=== PATIENT | male | born 1960 | race Caucasian/White ===

== ENCOUNTER 2025-06-21 07:52 | Day surgery (SDC) | payer MEDICARE, MEDICAID, SELFPAY ==
--- NOTE | 2025-06-08 11:48 | PAT.ANE_ITS ---
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 When Was Last Pacemaker Check QUESTION #4 FULL TEXT: You/Your Family Experience fever (hyperthermia) with Anesthesia Last Oral Intake Last Oral intake: Last Oral Intake NPO since Meds taken in AM with sips of water? Meds patient instructed to take am of surgery PONV PONV - production technologist: PONV - production technologist Female No 06/08/25 10:17 HX of Motion Sickness No 06/08/25 10:17 HX of N/V After Surgery No 06/08/25 10:17 Non-Smoker Yes 06/08/25 10:17 Duration of Surgery greater Yes 06/08/25 10:17 than 60 minutes Number of Risk Factors 2 06/08/25 10:17 PONV Score Moderate Risk 06/08/25 10:17 Height & Weight Height & Weight: Anesthesia: Height & Weight Height 6 ft 06/02/25 09:24 Respiratory Assessment Respiratory Assessment - production technologist: Respiratory Tract Infection Hx - production technologist Hx Respiratory Tract Infection No 06/08/25 10:17 STOP Sleep Apnea STOP Sleep Apnea - production technologist: STOP Sleep Apnea - production technologist Hx Hypertension Yes: CONTROLLED WITH MED 06/08/25 10:17 Hx Sleep Apnea No 06/08/25 10:17 CPAP BIPAP Do you snore loudly (louder No 06/08/25 10:17 than talking or can be heard Do you often feel tired/ Yes 06/08/25 10:17 fatigued/ sleepy during daytime? Has anyone observed you stop No 06/08/25 10:17 breathing during sleep? STOP Results Positive 06/08/25 10:17 QUESTION #5 FULL TEXT : Do you snore loudly (louder than talking or can be heard through closed doors)? 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 Specify any problems Hx of Preganancy in last 3 N/A 06/08/25 10:17 Months Nurse Filling Out Transfusion DSCHRIBER 06/08/25 10:17 & Questions: Date: 06/08/25 06/08/25 10:17 Time: 10:20 06/08/25 10:17 Patient unable to answer at this time (ie. confused, unrespo /Reproduction History /Reproductive History - production technologist: /Reproductive Hx- production technologist Hx Now No 06/08/25 10:17 Gestational Age (in weeks): EDC: Hx Hx Para Hx Section SAB No 06/08/25 10:17 [facility] Medical History (Updated 06/08/25 @ 10:40 by Allison Sequeira) Lives in apartment Acquired cognitive dysfunction Arthritis Bladder disease Prostate disease High cholesterol Back pain Head deformity Syncope Seizures History of diverticulitis Non-smoker Leg cramps Hypertension History of echocardiogram Cardiology follow-up encounter Fall Atrial fibrillation, new onset Thyroid disease Home Medications ?Medication ?Instructions ?Recorded ?Last Taken ?Type chlorhexidine gluconate 0.12 % 15 ml buccal QDAY 06/02 Unknown History mouthwash clotrimazole-betamethasone 1 1 applic topical BID 05/16 05/09 Unknown History %-0.05 % topical cream divalproex 500 mg tablet,delayed 500 mg PO .qd 5 Unknown History release (Depakote) donepezil 10 mg tablet 10 mg PO QDAY 06/02/25 Unkno wn History hydrochlorothiazide 12.5 mg capsule 12.5 mg PO QAM Unknown History levothyroxine 25 mcg capsule 25 mcg PO QDAY 06/02/25 U nknown History levothyroxine 25 mcg capsule 50 mcg PO QDAY 06/02/25 U nknown History mupirocin 2 % ointment topical kit 1 applic topical QD AY 06/02/25 Unknown History rosuvastatin 5 mg tablet 5 mg PO QDAY 06/02/25 Unknow n History sotalol 80 mg tablet 80 mg PO BID 06/02/25 Unknow n History tamsulosin 0.4 mg capsule 0.4 mg PO QDAY 06/02/25 Unkn own History Allergy/AdvReac Type Severity Reaction Status Date / Time No Known Allergies Allergy Verified 06/08/25 10:13 Family History (Updated 06/02/25 @ 09:24 by Peblbes Macdonald) Mother Diabetes Hypertension CVA (cerebral vascular accident) Thyroid disorder Sister Thyroid disorder Surgical History (Updated 06/08/25 @ 10:35 by Allison Sequeira) History of loop recorder H/O colectomy Social History (Updated 06/02/25 @ 09:24 by Pebbles Macdonald) Smoking Status: Never smoker alcohol intake: never Audit: Pertinent Findings Pertinent Findings Echo (EF%) pertinent findings: EF 55 to 60%. Wall motion is normal. There are no regional wall motion abnormalities. Normal diastolic function. The RV systolic pressure by Doppler is 33 mmHg. Consult pertinent findings: Cardiology note 05/09/2025. 65-year-old male for follow-up last seen on 04/04/2025 when he was started on sotalol and discontinued metoprolol. Patient has MRDD and his sister is his power of disability attorney. Recent echocardiogram showed normal ejection fraction and overall stable valve function. Recommendation Anesthesia Recommendation Anesthesia recommendation: OPTIMIZED for anesthesia
[2025-06-21] VITALS (9 sets, daily range): BP systolic 134–157; BP diastolic 80–95; PULSE 53–71; RESP 14–20; TEMP 36.2–36.5; O2SAT 84–98; BMI 27.8
--- NOTE | 2025-06-21 08:17 | PRE.ANES_ITS ---
ASA Classification* ASA Classification ASA Classification: 3 Assessment & Plan Anesthesia* Anesthesia Assessment Anesthesia Assessment: Discussed sedation and/or anesthesia options, risks, benefits, and alternatives with patient/parents/legal guardian/POA. Questions invited. The patient/parents/legal guardian/POA seems to understand and agrees to proceed with anesthesia plan. Reviewed the physical assessment, medical history, allergy history and patient home medications list prior to surgery/procedure/anesthetic and documented any changes. Performed airway and anesthesia risk assessments. 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 When Was Last Pacemaker Check QUESTION #4 FULL TEXT: You/Your Family Experience fever (hyperthermia) with Anesthesia Last Oral Intake Last Oral intake: Last Oral Intake NPO since Meds taken in AM with sips of water? 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 Female No 06/08/25 10:17 HX of Motion Sickness No 06/08/25 10:17 HX of N/V After Surgery No 06/08/25 10:17 Non-Smoker Yes 06/08/25 10:17 Duration of Surgery greater Yes 06/08/25 10:17 than 60 minutes Number of Risk Factors 2 06/08/25 10:17 PONV Score Moderate Risk 06/08/25 10:17 Height & Weight Height & Weight: Anesthesia: Height & Weight Height 6 ft 06/02/25 09:24 Respiratory Assessment Respiratory Assessment - embossing machine operator: Respiratory Tract Infection Hx - embossing machine operator Hx Respiratory Tract Infection No 06/08/25 10:17 STOP Sleep Apnea STOP Sleep Apnea - embossing machine operator: STOP Sleep Apnea - embossing machine operator Hx Hypertension Yes: CONTROLLED WITH MED 06/08/25 10:17 Hx Sleep Apnea No 06/08/25 10:17 CPAP BIPAP Do you snore loudly (louder No 06/08/25 10:17 than talking or can be heard Do you often feel tired/ Yes 06/08/25 10:17 fatigued/ sleepy during daytime? Has anyone observed you stop No 06/08/25 10:17 breathing during sleep? STOP Results Positive 06/08/25 10:17 QUESTION #5 FULL TEXT : Do you snore loudly (louder than talking or can be heard through closed doors)? 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 Specify any problems Hx of Preganancy in last 3 N/A 06/08/25 10:17 Months Nurse Filling Out Transfusion DSCHRIBER 06/08/25 10:17 & Questions: Date: 06/08/25 06/08/25 10:17 Time: 10:20 06/08/25 10:17 Patient unable to answer at this time (ie. confused, unrespo /Reproduction History /Reproductive History - embossing machine operator: /Reproductive Hx- embossing machine operator Hx Now No 06/08/25 10:17 Gestational Age (in weeks): EDC: Hx Hx Para Hx Section SAB No 06/08/25 10:17 Active Medications Active Medications: Current Medications Generic Name Dose Route Start Last Admin Trade Name Freq PRN Reason Stop Dose Admin Cefazolin Sodium 2 gm/ Sodium 110 mls @ 200 mls/hr 06/21/25 09:15 06/21/25 08:07 Chloride IV 06/21/25 09:47 Not Given INTRAOP ONE Lactated Ringer's 1,000 mls @ 15 mls/hr 06/21/25 08:15 IV .Q48H BLANKA PFSH Medical History Lives in apartment Acquired cognitive dysfunction Arthritis Bladder disease Prostate disease High cholesterol Back pain Head deformity Syncope Seizures History of diverticulitis Non-smoker Leg cramps Hypertension History of echocardiogram Cardiology follow-up encounter Fall Atrial fibrillation, new onset Thyroid disease Home Medications ?Medication ?Instructions ?Recorded ?Last Taken ?Type chlorhexidine gluconate 0.12 % 15 ml buccal BID Unknown History mouthwash clotrimazole-betamethasone 1 1 applic topical BID 05/16 05/09 Unknown History %-0.05 % topical cream divalproex 500 mg tablet,delayed 500 mg PO QHS 5 Unknown History release (Depakote) donepezil 10 mg tablet 10 mg PO QHS 06/02/25 Unknow n History hydrochlorothiazide 12.5 mg capsule 12.5 mg PO QAM Unknown History levothyroxine 25 mcg capsule 25 mcg PO SUMOTUTHFR 05/16 05/09 Unknown History levothyroxine 25 mcg capsule 50 mcg PO WESA 06/02/25 U nknown History rosuvastatin 5 mg tablet 5 mg PO QHS 06/02/25 Unknown History sotalol 80 mg tablet 80 mg PO BID 06/02/25 Unknow n History tamsulosin 0.4 mg capsule 0.4 mg PO QHS 06/02/25 Unkno wn History apixaban 5 mg tablet (Eliquis) 5 mg PO BID 06/08/25 Un known History Allergy/AdvReac Type Severity Reaction Status Date / Time No Known Allergies Allergy Verified 06/08/25 10:13 Family History Mother Diabetes Hypertension CVA (cerebral vascular accident) Thyroid disorder Sister Thyroid disorder Surgical History History of loop recorder H/O colectomy Social History Smoking Status: Never smoker alcohol intake: never Review of Systems (Anesthesia) ROS Narrative System reviewed and no additional complaints, except as documented.
--- NOTE | 2025-06-21 08:20 | PCM.HP.BLA ---
History and Physical Date of Admission: 06/21/25 Intake Visit Reasons: inguinal hernia Accompanied by: Legal Guardian Is patient in pain?: No Allergies No Known Allergies Allergy (Verified 06/02/25 09:30) Medications ?Medication ?Instructions ?Recorded ?Confirmed ?Type chlorhexidine gluconate 0.12 % 15 ml buccal QDAY 06/02/25 06/02/25 History mouthwash clotrimazole-betamethasone 1 1 applic topical BID 06/02/25 06/02/25 History %-0.05 % topical cream divalproex 500 mg tablet,delayed 500 mg PO .qd 06/02/25 06/02/25 History release (Depakote) donepezil 10 mg tablet 10 mg PO QDAY 06/02/25 06/02/25 History hydrochlorothiazide 12.5 mg capsule 12.5 mg PO QAM 06/02/25 06/02/25 History levothyroxine 25 mcg capsule 25 mcg PO QDAY 06/02/25 06/02/25 History levothyroxine 25 mcg capsule 50 mcg PO QDAY 06/02/25 06/02/25 History mupirocin 2 % ointment topical kit 1 applic topical QDAY 06/02/25 06/02/25 History rosuvastatin 5 mg tablet 5 mg PO QDAY 06/02/25 06/02/25 History sotalol 80 mg tablet 80 mg PO BID 06/02/25 06/02/25 History tamsulosin 0.4 mg capsule 0.4 mg PO QDAY 06/02/25 06/02/25 History Assessment and Plan Assessment and Plan (1) Inguinal hernia: Status: Acute Qualifiers: Obstruction and gangrene presence: without obstruction or gangrene Laterality: unilateral Recurrence: non-recurrent Qualified Code(s): K40.90 - Unilateral inguinal hernia, without obstruction or gangrene, not specified as recurrent 06/02/25940 <Electronically signed by Ladarius Rivera MD> Date Ladarius Rivera MD cc: ~* Signed Intake Vital Signs 06/02/2509:24 Height 6 ft Weight: 207 lb BMI 28.0 BP 106/69 Blood Pressure Location Rt brachial Position Sitting Respiration 17 Pulse 76 Pulse Source Monitor Pulse Oximetry (%) 96 Oxygen Delivery Method room air Intake Visit Reasons: INGUINAL HERNIA [facility] Medical History (Updated 06/02/25 @ 09:[address] Ladarius Rivera MD) Atrial fibrillation, new onset Thyroid disease Surgical History (Updated 06/02/25 @ 09:23 by Pebbles Macdonald) H/O colectomy Family History (Updated 06/02/25 @ 09:24 by Pebbles Macdonald) Mother Diabetes Hypertension CVA (cerebral vascular accident) Thyroid disorder Sister Thyroid disorder Social History (Updated 06/02/25 @ 09:24 by Pebbles Macdonald) Smoking Status: Never smoker alcohol intake: never HPI HPI HPI: Patient is a 65-year-old male here with right inguinal hernia. Patient's family notes that has been there for several weeks. He does not know how long it has been there. He denies acute pain in the area but he has complained of pain in the past. He denies nausea or vomiting. ROS General General: Yes fatigue; No weight change, appetite, colon cancer, breast cancer or weakness HEENT HEENT: No difficulty swallowing, eye injury, eye surgery, swollen glands or hoarseness Endo Endocrine: Yes thyroid disease; No diabetes mellitus, thyroid cancer, Hair loss, heat intolerance or cold intolerance Skin Skin: No rash or changing moles Musc Musculoskeletal: No back problems, arthritis, rheumatoid arthritis, gout or joint pain Cardio Cardiovascular: Yes atrial fibrillation; No murmur, pacemaker, heart disease, high blood pressure, heart attack, heart stent, palpitations, shortness of breath with exertion or chest pain Psych Psychiatric: No depression, anxiety or hearing voices Resp Respiratory: No shortness of breath, No sleep apnea, No cough, No COPD, No asthma, No emphysema and No wheezing Gastro Gastrointestinal: No abdominal pain, No nausea or vomiting, Yes diarrhea, Yes constipation, No blood in stool, No acid reflux, No hemorrhoids, No ulcers, No gallbladder problem and No black,tarry stools Isidro Hematologic: No blood thinners, No blood disorders, No bleeding, No anemia and No blood clots Neuro Neurologic: No system reviewed and no additional complaints, except as documented, No as per HPI, No abnormal gait, No abnormal hearing, No abnormal movements, No abnormal speech, No behavioral changes, No burning sensations, No confusion, No convulsions, No disequilibrium, No dizziness, No localized weakness, No frequent falls, No headache(s), No lack of coordination, No loss of vision, No memory loss, No numbness, No other visual disturbances, No radicular pain, No restless legs, No sensory deficit, No syncope, No tingling, No tremor(s), No weakness and No other Exam Const General: cooperative Orientation: alert and oriented x3 HENMT Head: normal to inspection Neck Neck: normal visual inspection and full ROM Chest Chest palpation & inspection: normal inspection of the chest Resp Effort & Inspection: normal respiratory effort Auscultation: clear to auscultation bilaterally Cardio Rate: regular rate Rhythm: regular rhythm GI Inspection: non-distended Palpation: soft, hernia indirect inguinal on the right and nontender Skin General: no rashes or lesions noted Neuro General: patient alert and patient oriented x3 Extrem General: full ROM Psych Appearance: grossly normal Mental Status: mental status grossly normal Assessment and Plan Assessment and Plan (1) Inguinal hernia: Status: Acute Qualifiers: Obstruction and gangrene presence: without obstruction or gangrene Laterality: unilateral Recurrence: non-recurrent Qualified Code(s): K40.90 - Unilateral inguinal hernia, without obstruction or gangrene, not specified as recurrent Plan: The patient has a reducible right inguinal hernia. I discussed repairing this in an open fashion as he has had a midline incision in the past and I think there would be too much scar tissue for robotic repair. I discussed open repair with the patient and his family in detail. I discussed the risks including but not limited to bleeding, infection, injury other organ such as the blood supply to the testicle or the testicle itself, bowel, bladder, chronic groin pain. Patient understands the risks and is willing to proceed. Ladarius Rivera MD Pager: [facility] [address] [place] [address], [address] [place] [address] Office: I have examined the patient and the H&P has been reviewed. There are no clinical changes since date of exam.
[2025-06-21 08:35] LABS: Hematocrit 42.4 % (40-54); Hemoglobin 14.2 g/dL (13.0-16.5); Mean Corp Hgb Conc 33.5 g/dL (32-36); Mean Corpuscular Volume 88.9 fL (80-94); Mean Platelet Vol. 9.9 fl (6.2-12.0); Platelet Count 168 K/mm3 (150-450); RBC Distribution Width CV 12.9 % (11.6-14.6); RBC Distribution Width SD 42.1 fl (35.1-43.9); Red Blood Count 4.77 M/mm3 (4.6-6.2); White Blood Count 5.0 K/mm3 (4.4-11.0)
[2025-06-21] MEDS: Lactated Ringers 1,000 ML 15 ML IV (09:00)
[2025-06-21] MEDS: Lactated Ringers 1,000 ML 1000 ML IV (09:05)
[2025-06-21] MEDS: Cefazolin 1 GM/5 ML Vial 2 GM IV (09:05)
[2025-06-21] MEDS: Midazolam 2 MG/2 ML Syringe IV (09:05)
[2025-06-21] MEDS: Lidocaine 1% (5 ml sdv) 5 ML Vial 10 ML IV (09:10)
--- NOTE | 2025-06-21 09:15 | HERN_PTH ---
PATIENT: REBECCA FORTE [place] [facility] [id number] AGE/SX: 65/M ROOM: RE06/21/[address]: Dr. Ladarius Rivera MD : 1960 BED: DIS: 06/21/2025 SPEC #: [id number] RECD: 06/21/25 11:49 STATUS: KELLI SOLIS #: [id number] KEZIA: 06/21/25 09:[address]: Ladarius Rivera DEPT: SURGICAL PATHOLOGY RECD BY: Amadou Cruz ENTERED: 06/21/25 13:41 SP TYPE: Hernia OTHR DR: Out of Town Doctor Tissues: A - HERNIA Procedures: Surgery Specimen Level II HEADER OPERATION: Hernia, open right inguinal hernia with mesh PRE-OP DIAGNOSIS: Inguinal hernia TISSUE SUBMITTED: A- Right inguinal hernia sac MICROSCOPIC DIAGNOSIS A. Soft tissue, right inguinal hernia repair: * Benign fibromembranous tissue consistent with hernia sac MICROSCOPIC DESCRIPTION Slides are reviewed. GROSS DESCRIPTION A. Received in formalin labeled with the patient's name and date of . Designated as right inguinal hernia sac is a 7.6 x 4.6 x 1.4 cm pink-red, slightly wrinkled and glistening portion of semimembranous tissue with attached yellow soft tissue and focal cautery. Metal Inspector sections are submitted in 1 cassette. IA 06/21/2025 CPT:73830
[2025-06-21 09:25] LABS: Anion Gap 12 (5-15); BUN 37 mg/dL (4-19); BUN/Creat Ratio 33.3 RATIO (10-20); Calcium,Total 9.1 mg/dL (7.6-11.0); Carbon Dioxide 23.6 mmol/L (21.0-32.0); Chloride 106 mmol/L (98-108); Estimated Creatinine Clearance 73.13 ml/min (50-250); Glucose 110 mg/dL (70-99); Potassium 3.6 mmol/L (3.3-5.1)
[2025-06-21] MEDS: fentaNYL 100 MCG/2 ML Ampul IV (10:29)
--- NOTE | 2025-06-21 10:45 | PCM.OPRPT ---
Operative Report (Standard) Operative Information Date of Procedure: 06/21/25 Pre-Operative Diagnosis: Right inguinal hernia Post-Operative Diagnosis: Right inguinal hernia Surgery/Procedure Performed: Right inguinal hernia repair with mesh humanities coordinator: Yes Automatic Head Sawyer: Debbie Marcelo Tasks completed by first aid attendant: Opening, Closing and Retracting Type of Anesthesia: General/Regional RN Documented Start/Stop Times: Operation Date: 06/21/25 09:15 Case Time Into Pre-Op 06/21/25 08:08 Anesthesia Start 06/21/25 09:05 Into Room 06/21/25 09:05 Out of Pre-Op 06/21/25 09:05 Procedure Start 06/21/25 09:22 Procedure Start Time: :22 Procedure Stop Time: 10:55 Select all DRAINS/GRAFTS/IMPLANTS that apply: Implanted device Implanted device details: Bard keyhole mesh Estimated Blood Loss: 20 Specimen collected: Yes Description of specimen(s) removed: Hernia sac Description of surgery: Patient was brought to the operating room and general anesthesia was induced. The right groin was prepped and draped in the usual sterile fashion. An incision was marked between the pubic tubercle and the ASIS. Local was injected and then incision was made. Incision was deepened to the cord. The external aponeurosis appeared to be atrophied and attenuated. The cord was encircled with a Stepan drain. And trying to find the cord and [place] the testicle was brought into the incision. The testicle was reduced again after the cord was encircled with a [place]. The hernia sac was identified and dissected free from the inguinal cord. It was opened using scissors and then suture-ligated using an 0 silk suture. Next the stump was reduced. A Bard keyhole mesh was sutured to the pubic tubercle using 2-0 PDS suture. I was then sutured to the inguinal ligament with interrupted 2-0 PDS sutures. It was sutured medially to the conjoined tendon with interrupted 2-0 PDS sutures. The tails were wrapped around the cord and sutured together leaving enough room for the tip of the pinky finger adjacent to the vessels. The tails were tucked underneath. Next the Miguel's fascia was reapproximated using interrupted 3-0 Vicryl sutures. The skin was closed with a running 4-0 Monocryl suture and Dermabond was applied. Scrotum was checked at the end of the case contained both testicles. Patient was awoken and taken back to his to PACU in stable condition. Surgical Findings: Very scarred in hernia Complications Complications: No Admit VTE Documentation VTE Mechan Device Prophylaxis: SCD's
[2025-06-21] MEDS: Bupiv/Epi 0.25% 30 ML Vial (10:47)
--- NOTE | 2025-06-21 10:49 | EX.PCM.DISCH ---
Discharge Instructions Procedure Hernia Diet Discharge Diet: Light diet - advance as tolerated Activity Discharge Activity: May Not Drive (for 2-3 days or while taking narcotic pain meds.) and May Shower (1-2 days after surgery.) Lifting Restrictions: 20 pounds for 6 weeks. Additional Activity Instructions:: Climbing stairs is fine, walking is encouraged. Sitting in bed may be uncomfortable. Sitting up using your lateral muscles (sitting up sideways) is usually more comfortable. Do not drive, work heavy equipment of sign legal documents for 24 hours. If your hernia repair was an ingunial repair, you may have scrotal swelling, an ice pack and/or athletic support can provide more comfort. Pain medications may cause nausea, you should typically eat light foods as you take your pain medications. Pain medications may also cause constipation. If you have difficulty with this, discuss with your doctor. Alternate ibuprofen and Tylenol for pain control, oxycodone for breakthrough pain Resume Eliquis Dressing / Incision Call your doctor if your incision/area has: Continuous Slow Oozing, Sudden Increased Bleeding, Increased Pain/ Swelling, Increased Redness and Foul Smelling Discharge Call your doctor if you observe: Fever of 101 or Higher Suture Line Care: Avoid Pulling/Pushing and Avoid Pinching/Bending Remove Dressing in: 2 days (Remove clear bandages in 2 days, remove Steri-Strips in 7 to 10 days.) Cleanse incision/area with: Soap & Water Follow Up Care Please Follow Up With: Ladarius Rivera MD When: Please call to schedule 2 week follow up appointment. [phone] Test Results: Test results from this visit will be discussed in further detail at your follow-up appointment, if applicable. Discharge Plan Admission Attending Provider: Ladarius Rivera Primary Care Provider: [facility] ,Out of Instructions Print Language: Slovak Discharge Orders/Prescriptions Prescriptions: New oxycodone 5 mg Tablet 5 - 10 mg PO Q4H PRN PRN (Reason: Pain Score 4-10) 5 Days Qty: 14 0RF No Action sotalol 80 mg tablet 80 mg PO BID donepezil 10 mg tablet 10 mg PO QHS divalproex [Depakote] 500 mg tablet,delayed release (DR/EC) 500 mg PO QHS tamsulosin 0.4 mg capsule 0.4 mg PO QHS hydrochlorothiazide 12.5 mg capsule 12.5 mg PO QAM rosuvastatin 5 mg tablet 5 mg PO QHS chlorhexidine gluconate 0.12 % mouthwash 15 ml buccal BID levothyroxine 25 mcg capsule 25 mcg PO SUMOTUTHFR Rx Instructions: mon,tues, thurs, fri sun levothyroxine 25 mcg capsule 50 mcg PO WESA Rx Instructions: wed and sat Eliquis 5 mg tablet 5 mg PO BID Referrals / Follow Up: [facility],Out of [Primary Care Provider, Medical] Disposition Disposition (needs filled in before D/C Order can be placed): Home, Self Care
[2025-06-21] MEDS: dexMEDEtomidine 200 MCG/2 ML ML 24 MCG IV (10:52)
--- NOTE | 2025-06-21 11:05 | PCM.POST.ANE ---
Anesthesia: Postop Eval I Current Vital Signs Temperature: 97.7 F Pulse Rate: 62 Blood Pressure: 155/95 Respiratory Rate: 16 Pulse Ox: 96 Assessment Airway patent: Yes Spontaneous unlabored respirations: Yes nausea: No Vomiting: No Anesthesia Complication: No Fluid Hydration Crystalloid volume administer (ml): 1,000 Total IV fluid infused: 1,000 Progress Note Anesthesia document: Postop Eval 1 completed: Yes
--- NOTE | 2025-06-21 11:47 | POSTOPAN2_ITS ---
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 Vomiting No 06/21/25 11:05 CHILD [employer] SERVICES SPECIALIST.TNES Anesthesia Postop Eval I: Fluid Summary Crystalloid volume administer 1,000 06/21/25 11:05 CHILD [employer]IVE SERVICES SPECIALIST.TNES (ml) Colloids volume administered ( ml) Blood Product volume administered (ml) Total IV fluid infused 1,000 06/21/25 11:05 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
--- NOTE | 2025-06-21 11:47 | PCM.POSTANE2 ---
Anesthesia Postop Eval I Sum Postop Eval Completion status Anesthesia document: Postop Eval 1 completed: Yes Anesthesia Postop Eval I Summary Anesthesia Postop Eval I Summary: Anesthesia Postop Eval I: Assessment Summary Airway patent Yes 06/21/25 11:05 [email or web address] Spontaneous unlabored Yes 06/21/25 11:05 [employer].[email or web address] respirations Mental status nausea No 06/21/25 11:05 [employer].[email or web address] Vomiting No 06/21/25 11:05 [email or web address].[email or web address] Anesthesia Postop Eval I: Fluid Summary Crystalloid volume administer 1,000 06/21/25 11:05 [employer].TNES (ml) Colloids volume administered ( ml) Blood Product volume administered (ml) Total IV fluid infused 1,000 06/21/25 11:05 [email or web address].[email or web address] Anesthesia Postop Eval I: Summary Notes Anesthesia Complication No 06/21/25 11:05 [employer].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
== END 2025-06-21 13:00 | disposition home or self-care (01) ==
LOC: SDC 07:58 → AC 08:01
PROVIDERS: Anesthesiology; Referring Provider Surgery; Visit Provider Surgery
PROC: (CPT 49505; principal; 2025-06-21 08:55)
DX: K40.90 Unilateral inguinal hernia, without obstruction or gangrene, not specified as recurrent (principal); I48.91 Unspecified atrial fibrillation; E07.9 Disorder of thyroid, unspecified; E78.00 Pure hypercholesterolemia, unspecified; I10 Essential (primary) hypertension; Z79.890 Hormone replacement therapy; Z79.899 Other long term (current) drug therapy; Z79.01 Long term (current) use of anticoagulants
CPT/HCPCS: 49505; 00830; 80048; 84443; 85027; 88302; C1781; J2405